=== PATIENT | female | born 1970 | race Caucasian/White ===

== ENCOUNTER 2019-10-30 04:45 | Emergency (ER) | payer SELFPAY ==
[~2019-10-30] VITALS: Ht 162.6 cm; Wt 99.8 kg
[2019-10-30 04:47] VITALS: Ht 162.6 cm; Wt 99.8 kg
--- NOTE | 2019-10-30 07:17 | NUR ---
PT REFUSED ABG AROUND 0700. I TRIED OBTAINING A SAMPLE BUT SHE STARTED TO RESIST AND REFUSED.
[2019-10-30 07:28] LABS: BASOPHIL % 0.4 % (0-2); PLATELET COUNT 270 x10^3mcL (130-400)
[2019-10-30 07:31] LABS: RED CELL DISTRIBUTION WIDTH 14.7 % (11.5-14.5)
[2019-10-30 07:47] LABS: CALCIUM 8.9 mg/dL (8.5-10.1); CARBON DIOXIDE 25.7 mmol/L (21-32); CHLORIDE SERUM 103 mmol/L (98-107); CREATININE SERUM 0.5 mg/dL (0.6-1.0); GFR1 > 60 mL/min; GLUCOSE SERUM 106 mg/dL (74-106); POTASSIUM SERUM 3.8 mmol/L (3.5-5.1); SODIUM SERUM 140 mmol/L (136-145)
[2019-10-30 07:54] LABS: ALBUMIN 3.7 g/dL (3.4-5.0); ALKALINE PHOSPHATASE 66 U/L (46-116); ALT/SGPT 32 U/L (14-59); AST/SGOT 18 U/L (15-37); BILIRUBIN TOTAL 0.2 mg/dL (0.20-1.00); C REACTIVE PROTEIN 1.8 mg/dL (<=0.9); TOTAL PROTEIN, SERUM 7.6 g/dL (6.4-8.2)
[2019-10-30 08:34] LABS: microscopic required? NO
[2019-10-30 08:43] VITALS: BP 159/78
[2019-10-30 08:46] LABS: UA SPECIFIC GRAVITY >=1.030 (1.005-1.035); urine erythrocyte NEGATIVE (NEGATIVE)
== END 2019-10-30 08:37 | disposition home or self-care (01) ==
LOC: ED 04:45
PROVIDERS: Emergency Medicine
DX: U07.1 COVID-19 (principal); J98.11 Atelectasis
CPT/HCPCS: 83880; 87804; Q0092

== ENCOUNTER → 2019-11-22 | Outpatient (CLI) | payer SELFPAY | END | disposition home or self-care (01) | LOC: RD 14:17 | DX: R06.02 Shortness of breath (principal); U07.1 COVID-19 ==